=== PATIENT | male | born 1965 | race American Indian/Alaskan Native ===

== ENCOUNTER 2018-05-05 13:17 | Emergency (ER) | payer SELFPAY ==
[2018-05-05 13:34] VITALS: BP 132/79
[2018-05-05] MEDS ORDERED: IMODIUM A-D PO ONE (14:51)
[2018-05-05] MEDS ORDERED: NACL 0.9% 1000 ML 1,000 ML IV ONE (14:51)
[2018-05-05] MEDS ORDERED: BENTYL PO ONE ×2 (14:51→15:15)
--- NOTE | 2018-05-05 14:53 | Emergency Department Report ---
ED Abdominal Pain HPI - General Chief Complaint: Abdominal Pain Stated Complaint: STOMACH PAIN Time Seen by Provider: 05/05/18 14:22 Source: patient Mode of arrival: Ambulatory Limitations: No Limitations - History of Present Illness Initial Comments: 52-year-old male with abdominal pain and diarrhea since this morning. Patient reports pain in the middle of abdomen is, nonradiating. Denies nausea, vomiting and fever. MD Complaint: abdominal pain -: This morning Location: periumbilical, epigastric Radiation: none Migration to: no migration Severity: moderate Quality: cramping Consistency: constant Improves With: nothing Worsens With: nothing Associated Symptoms: diarrhea. denies: nausea, vomiting, fever - Related Data Previous Rx's Medication Instructions Recorded Last Taken Type Dicyclomine [Bentyl] 20 mg PO QID PRN #20 tablet 05/05/18 Unknown Rx Allergies Allergy/AdvReac Type Severity Reaction Status Date / Time No Known Allergies Allergy Unverified 05/05/18 13:35 ED Review of Systems ROS: Stated complaint: STOMACH PAIN Other details as noted in HPI Comment: All other systems reviewed and negative Constitutional: denies: chills, fever Gastrointestinal: abdominal pain, diarrhea. denies: nausea, vomiting ED Past Medical Hx - Past Medical History Previous Medical History?: No - Surgical History Past Surgical History?: No - Social History Smoking Status: Current Every Day Smoker Substance Use Type: None - Medications Home Medications: Home Medications Medication Instructions Recorded Confirmed Last Taken Type Dicyclomine [Bentyl] 20 mg PO QID PRN #20 tablet 05/05/18 Unknown Rx ED Physical Exam - General Limitations: No Limitations General appearance: alert, in no apparent distress - Head Head exam: Present: atraumatic, normocephalic - Eye Eye exam: Present: normal appearance - ENT ENT exam: Present: mucous membranes moist - Neck Neck exam: Present: normal inspection - Respiratory Respiratory exam: Present: normal lung sounds bilaterally. Absent: respiratory distress - Cardiovascular Cardiovascular Exam: Present: regular rate, normal rhythm - GI/Abdominal GI/Abdominal exam: Present: soft, tenderness (epigastric and periumbilical tenderness). Absent: distended, guarding, rebound - Extremities Exam Extremities exam: Present: normal inspection - Neurological Exam Neurological exam: Present: alert, oriented X3 - Psychiatric Psychiatric exam: Present: normal affect, normal mood - Skin Skin exam: Present: warm, dry, intact, normal color. Absent: rash ED Course Vital Signs 05/05/18 05/05/18 13:32 14:11 Temperature 98.9 F Pulse Rate 97 H Respiratory 18 18 Rate Blood Pressure 132/79 O2 Sat by Pulse 97 99 Oximetry - Consultations Consultation #1: 05/05/18 17:[address] Canela[address] reviewed by her. States unlikely small bowel obstruction. However, instructed to give patient return precautions for increased abdominal pain or onset of vomiting. States likely gastroenteritis. ED Medical Decision Making - Lab Data Result diagrams: 05/05/18 14:50 05/05/18 14:50 - Radiology Data Radiology results: report reviewed, image reviewed - Medical Decision Making 52-year-old male with onset of abdominal pain and diarrhea this morning. Mild elevation in WBCs, vital signs normal. CT shows possible small bowel obstruction. Images reviewed by a general surgeon on-call, states not likely SBO. Patient given return precautions. Advised by mouth hydration. Will give description for antidiarrheal and Bentyl. - Differential Diagnosis gastroenteritis, pancreatitis, diverticulitis Critical care attestation.: If time is entered above; I have spent that time in minutes in the direct care of this critically ill patient, excluding procedure time. ED Disposition Clinical Impression: Gastroenteritis Disposition: DC-01 TO HOME OR SELFCARE Is pt being admited?: No Condition: Stable Instructions: Loperamide (By mouth), Gastroenteritis (ED), Acute Diarrhea (ED) , Nutrition Tips for Relief of Diarrhea (ED) Prescriptions: Dicyclomine [Bentyl] 20 mg PO QID PRN #20 tablet PRN Reason: abdominal pain Referrals: PRIMARY CARE, [Primary Care Provider] - 3-5 Days Time of Disposition: 17:43
[2018-05-05 15:09] LABS: Basophils # (Auto) 0.1 K/mm3 (0.0-0.1); Eosinophils % (Auto) 0.1 % (0.0-4.3); Hematocrit 45.3 % (35.5-45.6); Hemoglobin 15.3 gm/dl (11.8-15.2); Lymphocytes # (Auto) 2.1 K/mm3 (1.2-5.4); Lymphocytes % (Auto) 16.5 % (13.4-35.0); Mean Corpuscular HGB Conc 34 % (32-34); Mean Corpuscular Hemoglobin 28 pg (28-32); Mean Corpuscular Volume 83 fl (84-94); Monocytes # (Auto) 0.7 K/mm3 (0.0-0.8); Monocytes % (Auto) 5.2 % (0.0-7.3); Platelet Count 302 K/mm3 (140-440); Red Blood Count 5.43 M/mm3 (3.65-5.03); Red Cell Distribution Width 14.3 % (13.2-15.2)
[2018-05-05] MEDS ORDERED: IMODIUM PO ONE (15:16)
[2018-05-05] MEDS ORDERED: BENTYL ONE (15:21)
[2018-05-05 15:24] LABS: Alanine Aminotransferase 19 units/L (7-56); Albumin 4.7 g/dL (3.9-5); BUN/Creatinine Ratio 18; Blood Urea Nitrogen 20 mg/dL (9-20); Calcium 9.7 mg/dL (8.4-10.2); Hemolysis Index 25
--- NOTE | 2018-05-05 16:38 | Cat Scan Report ---
FINAL REPORT EXAM: CT ABDOMEN PELVIS W CON HISTORY: abd pain TECHNIQUE: Following IV administration of 100 cc of Omnipaque 300 axial helical imaging was performed through the abdomen and pelvis with sagittal and coronal reformatted images obtained. Delayed axial helical imaging was also performed through the abdomen and pelvis. Comparison: None FINDINGS: There is dependent atelectasis in both lung bases. The heart appears to be enlarged. The liver, spleen, kidneys and adrenal glands are unremarkable in appearance. The gallbladder is mildly distended and unremarkable in appearance. There dilatation of a segment of the pancreatic duct (3.8 millimeters) in the region of the anterior body of the pancreas. The pancreas is otherwise unremarkable in appearance. There is moderate distention of a segment of proximal ileum (3.3 centimeters) with air-fluid levels. There is a transition in the caliber of the small bowel in the region of the proximal to mid ileum. The caliber of the small bowel distal to the transition measures approximately 1.2 centimeters. The remainder of the small bowel is normal caliber to decompressed. There is no evidence of edema in the mesentery of the distended segment of small bowel and no evidence of bowel wall thickening. The appendix is normal caliber. There is a [id number] amount of stool throughout the colon. There is no evidence of pneumoperitoneum or free fluid. The abdominal aorta is normal caliber. There is no evidence of pathologic intra-abdominal adenopathy by CT size criteria. The urinary bladder is mildly distended and unremarkable in appearance. The prostate gland is enlarged and heterogeneous in appearance with maximal axial dimension of 4.8 centimeters. The bony structures are unremarkable in appearance. IMPRESSION: 1. Moderate distention of a segment of proximal ileum (3.3 centimeters) with air-fluid levels with a transition in caliber in the region of the proximal to mid ileum (1.2 centimeters). A small bowel obstruction cannot be excluded. There is no evidence of edema in the mesentery and no evidence of bowel wall thickening in this region. If further imaging is required, CT abdomen and pelvis with GI contrast may be helpful. 2. Dilatation of a segment of the pancreatic duct of unclear etiology. Comparison with previous imaging studies would be helpful. If no prior studies are available for comparison, MRI of the abdomen may be helpful for further evaluation. 3. Enlarged heterogeneous appearance of the prostate gland. 4. [id number] amount of stool throughout the colon. 5. The heart appears to be enlarged.
[2018-05-05 17:04] LABS: Bilirubin,Urine NEG (Negative); Blood,Urine NEG (Negative); Color,Urine Yellow (Yellow); Mucus,Urine FEW /HPF; Urobilinogen,Urine < 2.0 mg/dL (<2.0)
== END 2018-05-05 18:13 | disposition home or self-care (01) ==
LOC: ED 13:17
DX: K52.9 Noninfective gastroenteritis and colitis, unspecified (principal); F17.200 Nicotine dependence, unspecified, uncomplicated
CPT/HCPCS: 36415; 74177; 80053; 81001; 83690; 85025; 96360; 96361; 99284; J7030; Q9967